=== PATIENT | female | born 1930 | race Caucasian/White ===

== ENCOUNTER 2018-11-04 11:03 | Emergency (ER) | payer OTHER ==
[~2018-11-04] VITALS: Ht 157.5 cm; Wt 85.3 kg
[2018-11-04] MEDS ORDERED: SYNTHAMIN 173000 ML (11:16)
== END 2018-11-04 14:41 | disposition home or self-care (01) ==
LOC: ER 11:03
DX: S52.591A Other fractures of lower end of right radius, initial encounter for closed fracture (principal); S01.02XA Laceration with foreign body of scalp, initial encounter; W01.118A Fall on same level from slipping, tripping and stumbling with subsequent striking against other sharp object, initial encounter; Y93.89 Activity, other specified; Y92.018 Other place in single-family (private) house as the place of occurrence of the external cause; Y99.8 Other external cause status